=== PATIENT | female | born 1960 | race Two or more races ===

== ENCOUNTER 2023-10-16 14:53 | Outpatient (CLI) | payer MEDICARE, MEDICAID | END 2023-10-16 23:59 | disposition home or self-care (01) | LOC: RAD 14:53 | PROVIDERS: ATTEND Family Medicine | DX: M25.461 Effusion, right knee (principal); M25.561 Pain in right knee | CPT/HCPCS: 73560 ==

== ENCOUNTER 2024-03-17 12:51 | Outpatient (CLI) | payer MEDICARE, MEDICAID | END 2024-03-17 23:59 | disposition home or self-care (01) | LOC: MRI 12:51 | PROVIDERS: ATTEND Family Medicine Sports Medicine | DX: M17.11 Unilateral primary osteoarthritis, right knee (principal); M71.21 Synovial cyst of popliteal space [Baker], right knee; M25.861 Other specified joint disorders, right knee; M22.41 Chondromalacia patellae, right knee; M25.561 Pain in right knee | CPT/HCPCS: 73721 ==